=== PATIENT | male | born 1960 | race Caucasian/White ===

== ENCOUNTER → 2024-03-15 | Outpatient (CLI) | payer BC ==
[2024-03-15 14:20] LABS: INR 1.2 (<1.2); Partial Thromboplastin Time 24.7 sec (22.0-30.0); Prothrombin Time 12.4 sec (10.0-12.5)
[2024-03-15 19:21] LABS: Blood Urea Nitrogen 14.5 mg/dL (9.0-27.0); Glucose 110 mg/dL (70-110)
[2024-03-15 19:22] LABS: Calcium 9.6 mg/dL (8.7-10.3); Chloride 99 mmol/L (96-109); Potassium 4.2 mmol/L (3.5-5.5); Sodium 136 mmol/L (135-145)
[2024-03-15 19:54] LABS: HCT 47.6 % (39.6-50.0); HGB 16.6 g/dL (13.0-17.0); MCH 30.5 pg (27.0-32.0); MCHC 34.9 g/dL (32.0-37.0); MCV 87.5 FL (80.0-97.0); Mean Platelet Volume 9.3 FL (9.5-12.2); NRBC Per 100 WBC 0 X 10*3/uL (0.00-0.01); Platelet Count 310 X 10*3/uL (140-440); RBC 5.44 X 10*6/uL (4.40-5.60); RDW 11.9 % (11.5-14.5)
== END | disposition home or self-care (01) ==
LOC: LABWHC1 13:07
PROVIDERS: ATTEND Internal Medicine Interventional Cardiology
DX: I25.118 Atherosclerotic heart disease of native coronary artery with other forms of angina pectoris (principal)
CPT/HCPCS: 36415; 80048; 85027; 85610; 85730